=== PATIENT | male | born 1985 | race Two or more races ===

== ENCOUNTER 2021-10-12 21:36 | Emergency (ER) | payer BC ==
[~2021-10-12] VITALS: Ht 175.3 cm; Wt 88.5 kg
[2021-10-12 21:47] VITALS: BP 120/77
[2021-10-12] MEDS ORDERED: diphenhydrAMINE HCL 50 MG/ML VIAL ONE (22:23)
[2021-10-12] MEDS ORDERED: predniSONE 20 MG TABLET ONE (22:24)
[2021-10-12] MEDS ORDERED: FAMOTIDINE (20 MG) 20 MG TABLET ONE (22:24)
[2021-10-12] MEDS ORDERED: predniSONE 50 MG TABLET PO ONE (22:30)
[2021-10-12] MEDS ORDERED: FAMOTIDINE (20 MG) 20 MG TABLET PO ONE (22:30)
[2021-10-12] MEDS ORDERED: diphenhydrAMINE HCL 50 MG/ML VIAL IM ONE (22:30)
[2021-10-12] MEDS ORDERED: FAMO20TA8 PO (22:55)
[2021-10-12] MEDS ORDERED: PRED20TA PO (22:55)
[2021-10-12] MEDS ORDERED: DIPH50CA4 PO (22:55)
== END 2021-10-12 23:00 | disposition home or self-care (01) ==
LOC: ER 21:43
DX: L50.9 Urticaria, unspecified (principal); T36.8X5A Adverse effect of other systemic antibiotics, initial encounter; Z79.899 Other long term (current) drug therapy; Y92.89 Other specified places as the place of occurrence of the external cause
CPT/HCPCS: 96372; 99283; J1200; J7512